=== PATIENT | male | born 1970 | race Caucasian/White ===

== ENCOUNTER 2022-11-09 14:46 | Emergency (ER) | payer OTHER, SELFPAY ==
[2022-11-09 15:17] VITALS: BP 124/83; PULSE 88; RESP 18; TEMP 36.9; O2SAT 98
--- NOTE | 2022-11-09 16:22 | ED.GENADULT ---
HPI - General Adult General Chief complaint: Skin/Abscess/Foreign Body Stated complaint: left knee swelling maybe spider bite Time Seen by Provider: 11/09/22 16:08 History of Present Illness HPI narrative: Ranjeet Ferrara is a 52 y/o male who presents with reports of having an infected hair follicle vs bug bite to his right knee. He noticed it get swollen and painful 2 days ago. He reports area came to a head and started to drain fluid earlier today. Denies fever/chills. Related Data Allergies Allergy/AdvReac Type Severity Reaction Status Date / Time No Known Allergies Allergy Verified 11/09/22 16:32 Review of Systems Review of Systems: CONSTITUTIONAL: Denies fever, chills, or sweats. EYES: Denies visual changes, redness, or discharge. ENT: Denies rhinorrhea, congestion, sore throat, or otalgia. CARDIOVASCULAR: Denies chest pain, palpitations, or edema. RESPIRATORY: Denies cough or dyspnea. GASTROINTESTINAL: Denies abdominal pain, nausea, vomiting, or diarrhea. GENITOURINARY: Denies dysuria or hematuria. SKIN: Denies rash or itching. MUSCULOSKELETAL: Denies back pain, Pain to area of knee with the wound. Started 2 days ago. NEUROLOGIC: Denies headache, numbness, dizziness, or weakness. PSYCHIATRIC: Denies anxiety or depression. Exam Narrative: GENERAL: Well-appearing, well-nourished, and in no acute distress. HEAD: Normocephalic, atraumatic. EYES: PERRLA and EOMI. ENT: Nares clear, no rhinorrhea or epistaxis. Mucous membranes moist. NECK: Supple. No adenopathy or masses. No carotid bruits or JVD CHEST: Clear to auscultation. No respiratory distress. No wheezes rales or rhonchi HEART: Regular rate and rhythm. No murmur heard. Normal peripheral pulses. ABDOMEN: Soft, nontender, nondistended, normal active bowel sounds. EXTREMITIES: Normal range of motion. Erythema noted with raised papule to top of right knee. SKIN: Warm, dry, no rash. NEURO: No focal deficits. Alert and oriented x3. PSYCH: Normal mood and affect. Course Vital Signs Vital signs: Vital Signs Temperature 36.9 C 11/09/22 15:17 Pulse Rate 88 11/09/22 15:17 Respiratory Rate 18 11/09/22 15:17 Blood Pressure 124/83 11/09/22 15:17 Pulse Oximetry 98 11/09/22 15:17 Oxygen Delivery Room Air 11/09/22 15:17 Temperature 36.9 C 11/09/22 15:17 Pulse Rate 88 11/09/22 15:17 Respiratory Rate 18 11/09/22 15:17 Blood Pressure 124/83 11/09/22 15:17 Pulse Oximetry 98 11/09/22 15:17 Oxygen Delivery Room Air 11/09/22 15:17 Vitals reviewed by me. Medical Decision Making MDM Narrative Medical decision making narrative: On exam pt is noted to have a raised papule to right knee with erythema. Full ROM present Skin warm and dry No systemic symptoms no fever/chills. Vitals stable. wound started to spontaneous drain on its own. Concern for : Folliculitis / abscess/ cellulitis/ bug bite Plan to treat his pain and start him on antibiotics Encouraged pt to continue antibiotics as ordered Do warm compresses to knee to help area to drain Follow up with your PCP in 1 week. Return to the ED for any worsening symptoms or concerns. Differential Diagnosis Differential Diagnosis: Folliculitis / abscess/ cellulitis Vital Signs Vital Signs: Vital Signs Temperature 36.9 C 11/09/22 15:17 Pulse Rate 88 11/09/22 15:17 Respiratory Rate 18 11/09/22 15:17 Blood Pressure 124/83 11/09/22 15:17 Pulse Oximetry 98 11/09/22 15:17 Oxygen Delivery Room Air 11/09/22 15:17 Temperature 36.9 C 11/09/22 15:17 Pulse Rate 88 11/09/22 15:17 Respiratory Rate 18 11/09/22 15:17 Blood Pressure 124/83 11/09/22 15:17 Pulse Oximetry 98 11/09/22 15:17 Oxygen Delivery Room Air 11/09/22 15:17 vitals reviewed by me. Discharge Plan Discharge Clinical Impression: Folliculitis Cellulitis Qualifiers: Site of cellulitis: extremity Site of cellulitis of extremity: lower extremity L
[2022-11-09] MEDS: SULFAMETHOXAZOLE/TRIMETHOPRIM 800/160 MG DS TABLET 1 TAB PO (17:15)
[2022-11-09] MEDS: HYDROcodone/acetaminophen (*CRX) 5-325 MG TABLET 1 TAB PO (17:15)
[2022-11-09] MEDS: KETOROLAC 30 MG/ML VIAL (*BKC) IM (17:15)
== END 2022-11-09 17:42 | disposition home or self-care (01) ==
PROVIDERS: Emergency Provider Nurse Practitioner Family
DX: L03.115 Cellulitis of right lower limb (principal); L73.9 Follicular disorder, unspecified
CPT/HCPCS: 96372; 99283; A9270; J1885